=== PATIENT | male | born 1965 | race Asian ===

== ENCOUNTER 2019-01-30 19:31 | Inpatient (IN) | payer OTHER ==
[2019-01-30 22:59] LABS: WHITE BLOOD COUNT 7.8 10^3/ul (4.8-10.8)
[2019-01-30 22:59] LABS: ABNORMAL IP MESSAGE 1; HEMATOCRIT 21.7 % (42.0-52.0); MEAN CORPUSCULAR HEMOGLOBIN 28.9 pg (29.0-33.0); MEAN CORPUSCULAR HGB CONC 31.3 g/dl (32.0-37.0); MEAN CORPUSCULAR VOLUME 92.3 fl (82.0-101.0); MEAN PLATELET VOLUME 9.1 fl (7.4-10.4); PLATELET COUNT 319 10^3/UL (140-415); POSITIVE DIFF @See below; RED BLOOD COUNT 2.35 10^6/ul (4.70-6.10); RED CELL DISTRIBUTION WIDTH 14.6 % (11.5-14.5)
[2019-01-30 23:05] LABS: ADD MAN DIFF? YES; HEMOGLOBIN 6.8 g/dl (14.0-18.0)
[2019-01-30 23:17] LABS: INR 0.89; PROTIME 12.2 Sec (11.9-14.9)
[2019-01-30 23:18] LABS: PARTIAL THROMBOPLASTIN TIME 27.5 Sec (23.0-35.0)
[2019-01-30 23:20] LABS: ALANINE AMINOTRANSFERASE 64 IU/L (13-69); ALBUMIN 4.1 g/dl (3.3-4.9); ALBUMIN/GLOBULIN RATIO 1.46; ALKALINE PHOSPHATASE 81 IU/L (42-121); ANION GAP 10 (5-13); ASPARTATE AMINO TRANSFERASE 43 IU/L (15-46); BILIRUBIN,INDIRECT 0.3 mg/dl (0-1.1); BILIRUBIN,TOTAL 0.3 mg/dl (0.2-1.3); BLOOD UREA NITROGEN 12 mg/dl (7-20); CALCIUM 9.2 mg/dl (8.4-10.2); CARBON DIOXIDE 29 mmol/L (21-31); CHLORIDE 103 mmol/L (97-110); CREATININE 0.74 mg/dl (0.61-1.24); Estimated GFR > 60 mL/min (>60); GLUCOSE 109 mg/dl (70-220); POTASSIUM 4.1 mmol/L (3.5-5.1); SODIUM 142 mmol/L (135-144); TOTAL PROTEIN 6.9 g/dl (6.1-8.1)
[2019-01-30] MEDS: SOD CHLORIDE 0.9% 0 ML IV (23:20)
[2019-01-30 23:26] LABS: ANISOCYTOSIS 2+ (0-0); BASOPHILS % (M) 1 % (0-2); EOSINOPHILS % (M) 1 % (0-7); HYPOCHROMASIA 1+ (0-0); LYMPHOCYTES #M 2.1 10^3/ul (0.8-2.9); LYMPHOCYTES % (M) 27 % (15-51); MICROCYTOSIS 1+ (0-0); MONOCYTE #M 0.4 10^3/ul (0.3-0.9); MONOCYTES % (M) 6 % (0-11); PLATELET ESTIMATE NORMAL; POLYCHROMASIA 2+ (0-0); SEGMENTED NEUTROPHILS (M) % 65 % (39-77); SMUDGE%M 5 % (0-0)
[2019-01-30] MEDS ORDERED: ONDANSETRON 4 MG INJ IV ×2 (23:30)
[2019-01-30] MEDS ORDERED: NACL 0.9% 3 ML SYG IV (23:30)
[2019-01-30] MEDS ORDERED: morphine 2 MG INJ IV (23:30)
[2019-01-30] MEDS ORDERED: ACETAMINOPHEN 325 MG TAB PO ×2 (23:30)
[2019-01-31] MEDS: PANTOPRAZOLE IV 80 MG in SOD CHLORIDE 0.9% 100 ML IVPB
[2019-01-31] MEDS: SOD CHLORIDE 0.9% 1,000 ML IV ×3 (03:25→16:31)
[2019-01-31 05:57] LABS: ADD MAN DIFF? NO
[2019-01-31 06:00] LABS: BASOPHILS % 0.5 % (0.0-2.0); EOSINOPHILS # 0.2 10^3/ul (0.0-0.5); EOSINOPHILS % 3.2 % (0.0-7.0); HEMATOCRIT 21.5 % (42.0-52.0); HEMOGLOBIN 7.1 g/dl (14.0-18.0); LYMPHOCYTES # 1.8 10^3/ul (0.8-2.9); LYMPHOCYTES % 27.2 % (15.0-51.0); MEAN CORPUSCULAR VOLUME 90.7 fl (82.0-101.0); MEAN PLATELET VOLUME 9.1 fl (7.4-10.4); MONOCYTE # 0.5 10^3/ul (0.3-0.9); MONOCYTES % 7.6 % (0.0-11.0); PLATELET COUNT 264 10^3/UL (140-415); RED BLOOD COUNT 2.37 10^6/ul (4.70-6.10); RED CELL DISTRIBUTION WIDTH 14.3 % (11.5-14.5)
[2019-01-31 06:00] LABS: WHITE BLOOD COUNT 6.6 10^3/ul (4.8-10.8)
[2019-01-31 06:19] LABS: ALANINE AMINOTRANSFERASE 57 IU/L (13-69); ALBUMIN 3.2 g/dl (3.3-4.9); ALKALINE PHOSPHATASE 68 IU/L (42-121); ANION GAP 5 (5-13); ASPARTATE AMINO TRANSFERASE 29 IU/L (15-46); BILIRUBIN,INDIRECT 0.5 mg/dl (0-1.1); BILIRUBIN,TOTAL 0.5 mg/dl (0.2-1.3); BLOOD UREA NITROGEN 8 mg/dl (7-20); CALCIUM 8.8 mg/dl (8.4-10.2); CARBON DIOXIDE 27 mmol/L (21-31); CHLORIDE 110 mmol/L (97-110); CREATININE 0.65 mg/dl (0.61-1.24); Estimated GFR > 60 mL/min (>60); GLUCOSE 102 mg/dl (70-220); POTASSIUM 3.9 mmol/L (3.5-5.1); SODIUM 142 mmol/L (135-144); TOTAL PROTEIN 6.1 g/dl (6.1-8.1)
[2019-01-31 07:17] LABS: HEMOGLOBIN A1C 5.8 % (0-5.9)
[2019-01-31] MEDS: FAMOTIDINE 20 MG INJ IV ×2 (08:55→21:12)
[2019-01-31 16:07] LABS: ANION GAP 5 (5-13); BLOOD UREA NITROGEN 7 mg/dl (7-20); CALCIUM 8.9 mg/dl (8.4-10.2); CARBON DIOXIDE 26 mmol/L (21-31); CHLORIDE 109 mmol/L (97-110); CREATININE 0.69 mg/dl (0.61-1.24); Estimated GFR > 60 mL/min (>60); GLUCOSE 98 mg/dl (70-220); POTASSIUM 4.1 mmol/L (3.5-5.1); SODIUM 140 mmol/L (135-144)
[2019-01-31] MEDS: PEG/ELECTROLYTES 4L BTL PO (16:29)
[2019-01-31 21:17] LABS: IMMEDIATE SPIN CROSSMATCH 1 4
[2019-02-01] MEDS: SOD CHLORIDE 0.9% 1,000 ML IV ×2 (05:22→14:49)
[2019-02-01] MEDS: FAMOTIDINE 20 MG INJ IV ×2 (08:38→21:41)
[2019-02-01] MEDS ORDERED: ONDANSETRON 4 MG INJ IV (10:30)
[2019-02-01] MEDS ORDERED: LABETALOL HCL 20MG INJ IV (10:30)
[2019-02-01] MEDS ORDERED: FENTAnyl 50 MCG/ML VIAL IV (10:30)
[2019-02-01] MEDS ORDERED: DIPHENHYDRAMINE 50 MG INJ IV (10:30)
[2019-02-01] MEDS ORDERED: ACETAMINOPHEN 500 MG TAB PO (10:30)
[2019-02-01] MEDS ORDERED: ALBUTEROL 0.083% (NEB) 2.5 MG/3 ML AMP HHN (10:30)
[2019-02-01] MEDS ORDERED: LIDOCAINE 2% (SDV) 5 ML INJ (10:40)
[2019-02-01] MEDS ORDERED: PROPOFOL 40 ML (10:40)
[2019-02-01] MEDS ORDERED: PROPOFOL 20 ML (10:55)
[2019-02-02] MEDS: SOD CHLORIDE 0.9% 1,000 ML IV ×3 (03:16→21:22)
[2019-02-02] MEDS: FAMOTIDINE 20 MG INJ IV ×2 (09:00→22:24)
[2019-02-02] MEDS: AMOXICILLIN (50 MG/ML PO SYG) GTB (17:10)
[2019-02-02] MEDS: metroNIDAZOLE 250 MG TAB GTB ×2 (17:13→22:35)
[2019-02-02 18:24] LABS: ADD MAN DIFF? NO
[2019-02-02 18:25] LABS: BASOPHILS % 0.5 % (0.0-2.0); EOSINOPHILS # 0.2 10^3/ul (0.0-0.5); EOSINOPHILS % 3.8 % (0.0-7.0); HEMATOCRIT 32.2 % (42.0-52.0); HEMOGLOBIN 10.3 g/dl (14.0-18.0); LYMPHOCYTES # 1.7 10^3/ul (0.8-2.9); LYMPHOCYTES % 27.6 % (15.0-51.0); MEAN CORPUSCULAR HEMOGLOBIN 28.1 pg (29.0-33.0); MEAN PLATELET VOLUME 9.1 fl (7.4-10.4); MONOCYTE # 0.4 10^3/ul (0.3-0.9); MONOCYTES % 5.9 % (0.0-11.0); NEUTROPHIL # 3.9 10^3/ul (1.6-7.5); NEUTROPHILS % 61.6 % (39.0-77.0); PLATELET COUNT 378 10^3/UL (140-415); RED BLOOD COUNT 3.66 10^6/ul (4.70-6.10); RED CELL DISTRIBUTION WIDTH 14.9 % (11.5-14.5)
[2019-02-02 18:25] LABS: WHITE BLOOD COUNT 6.3 10^3/ul (4.8-10.8)
[2019-02-02 18:52] LABS: ANION GAP 7 (5-13); BLOOD UREA NITROGEN 7 mg/dl (7-20); CALCIUM 9.6 mg/dl (8.4-10.2); CARBON DIOXIDE 28 mmol/L (21-31); CHLORIDE 106 mmol/L (97-110); CREATININE 0.66 mg/dl (0.61-1.24); Estimated GFR > 60 mL/min (>60); GLUCOSE 95 mg/dl (70-220); POTASSIUM 3.8 mmol/L (3.5-5.1); SODIUM 141 mmol/L (135-144)
[2019-02-03] MEDS: SOD CHLORIDE 0.9% 1,000 ML IV ×2 (01:14→11:09)
[2019-02-03] MEDS: metroNIDAZOLE 250 MG TAB GTB ×2 (05:30→13:43)
[2019-02-03] MEDS: FAMOTIDINE 20 MG INJ IV (08:37)
[2019-02-03] MEDS ORDERED: CLARITHROMYCIN 250 MG TAB PO (21:00)
== END 2019-02-03 18:50 | disposition home or self-care (01) | DRG 378 ==
LOC: PP2 23:23 → E/R 19:31
PROC: 0W3P8ZZ Control Bleeding in Gastrointestinal Tract, Via Natural or Artificial Opening Endoscopic (ICD-10-PCS; principal; 2019-02-01 10:30)
PROC: 0DB68ZX Excision of Stomach, Via Natural or Artificial Opening Endoscopic, Diagnostic (ICD-10-PCS; 2019-02-01 10:30)
PROC: 0DJD8ZZ Inspection of Lower Intestinal Tract, Via Natural or Artificial Opening Endoscopic (ICD-10-PCS; 2019-02-01 10:30)
PROC: 30233N1 Transfusion of Nonautologous Red Blood Cells into Peripheral Vein, Percutaneous Approach (ICD-10-PCS; 2019-02-01 10:30)
DX: K26.4 Chronic or unspecified duodenal ulcer with hemorrhage (principal); D62 Acute posthemorrhagic anemia; K29.71 Gastritis, unspecified, with bleeding; K64.1 Second degree hemorrhoids; B96.81 Helicobacter pylori [H. pylori] as the cause of diseases classified elsewhere; Z87.891 Personal history of nicotine dependence
CPT/HCPCS: 36415; 36430; 71045; 80048; 80053; 83036; 85025; 85610; 85730; 86850; 86900; 86901; 86920; 88305; 88312; 93005; 99285-25